=== PATIENT | male | born 1950 | race Two or more races ===

== ENCOUNTER 2016-10-24 16:47 | Outpatient (CLI) ==
[2016-04-06 10:59] VITALS: BMI 13.1
--- NOTE | 2016-10-24 17:09 | DI ---
EXAM: Chest two views HISTORY: Cough, smoker COMPARISON: 04/06/2016 TECHNIQUE: Two views of the chest were performed FINDINGS: The lungs are clear. There is no pleural effusion or pneumothorax. The heart is normal in size. The mediastinal contour is normal, noting atherosclerosis. There are no acute abnormaliti es of the bones. There is cervical spinal fusion hardware. IMPRESSION: No acute cardiopulmonary process.
== END 2016-10-24 16:48 | disposition home or self-care (01) ==
LOC: RAD 16:47
PROVIDERS: ATTEND Internal Medicine
DX: R05 Cough (principal); F17.210 Nicotine dependence, cigarettes, uncomplicated

== ENCOUNTER 2017-01-23 17:06 | Emergency (ER) ==
[2017-01-23 17:10] VITALS: BP 161/80; TEMP 98.9; BMI 28.1
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
== END 2017-01-23 17:31 | disposition home or self-care (01) ==
LOC: ED 17:06
DX: S00.511A Abrasion of lip, initial encounter (principal); S01.511A Laceration without foreign body of lip, initial encounter; S09.90XA Unspecified injury of head, initial encounter; W17.89XA Other fall from one level to another, initial encounter; F17.210 Nicotine dependence, cigarettes, uncomplicated
CPT/HCPCS: 99281

== ENCOUNTER 2017-06-25 07:49 | Outpatient (CLI) ==
[2017-06-25 08:21] LABS: BILIRUBIN,URINE Negative (NEGATIVE); KETONES,URINE Negative (NEGATIVE); LEUKOCYTE ESTERASE ,URINE Negative (NEGATIVE); NITRITE,URINE Negative (NEGATIVE); PROTEIN,URINE 3+ (NEGATIVE); URINE, BLOOD 2+ (NEGATIVE)
[2017-06-25 08:22] LABS: ADD URINE MICROSCOPIC YES
[2017-06-25 08:28] LABS: CREATININE 1.02 mg/dL (0.60-1.10)
--- NOTE | 2017-06-25 10:06 | CT ---
EXAM: CT Abdomen with contrast. CT Pelvis with contrast. HISTORY: Hematuria. COMPARISON: 09/04/2010. TECHNIQUE: Multiple axial images of the abdomen and pelvis were obtained following intravenous admin istration of 75 mL of Omnipaque 350, low osmolar. Images were reformatted in the coronal plane. FINDINGS: The lung bases are clear. Degenerative changes present in the spine. No osteolytic or os teoblastic lesions identified. The liver demonstrates a nodular surface contour with heterogeneous parenchyma. No discrete mass raghav ntified. The spleen is enlarged. Varices seen in the upper abdomen and around the distal esophagus. There is a small amount of ascites. Calcified stones seen in the gallbladder. Possible distant com mon duct stones on axial images 38 and 40 and coronal image 41. The pancreas and adrenal glands are unremarkable. There is symmetric renal enhancement without hydronephrosis. There is a nonobstructin g left renal calculus measuring 0.5 cm. There is no evidence for bowel obstruction or acute inflammation. The appendix is normal. Colonic d iverticulosis noted. Circumferential urinary bladder wall thickening noted. Prostatic calcification s present. Suspect previous right inguinal hernia repair. Atherosclerotic calcifications are presen t. No free air identified. IMPRESSION: 1. Left nephrolithiasis without obstructive uropathy. Circumferential urinary bladder wall thickeni ng may represent cystitis. 2. Cirrhosis with sequela of portal hypertension. 3. Cholelithiasis and probable choledocholithiasis.
== END 2017-06-25 07:50 | disposition home or self-care (01) ==
LOC: RAD 07:49
PROVIDERS: ATTEND Internal Medicine
DX: R31.9 Hematuria, unspecified (principal)
CPT/HCPCS: 36415; 81001; 82565

== ENCOUNTER → 2017-08-06 | Outpatient (POV) | LOC: OUTPT 00:01 | PROVIDERS: ATTEND Otolaryngology | DX: H91.90 Unspecified hearing loss, unspecified ear (principal) ==